=== PATIENT | male | born 1940 | race Caucasian/White ===

== ENCOUNTER → 2023-02-14 | Day surgery (SDC) | payer OTHER ==
[~2023-02-14] VITALS: Ht 180.3 cm; Wt 97.5 kg
[~2023-02-14] MED LIST: CLARITIN10 MG PO; COZAAR25 M1 PO; CYMBALTA30 MG PO; ELIQUIS5 M1 PO; GLYBURIDE5 MG PO; PRILOSEC20 M1 PO; ZOCOR40 MG PO
[2023-02-14 08:42] VITALS: BP 158/85
[2023-02-14 10:17] VITALS: BP 141/85
[2023-02-14 10:32] VITALS: BP 140/86
[2023-02-14 10:46] VITALS: BP 147/93
== END | disposition home or self-care (01) ==
LOC: SDC 02-09 16:15
PROVIDERS: ATTEND Ophthalmology
DX: E11.36 Type 2 diabetes mellitus with diabetic cataract (principal); H25.811 Combined forms of age-related cataract, right eye; K21.9 Gastro-esophageal reflux disease without esophagitis; F41.9 Anxiety disorder, unspecified; F32.A Depression, unspecified; Z98.890 Other specified postprocedural states; Z88.8 Allergy status to other drugs, medicaments and biological substances

== ENCOUNTER → 2023-04-18 | Day surgery (SDC) | payer OTHER ==
[~2023-04-18] VITALS: Ht 180.3 cm; Wt 97.5 kg
[~2023-04-18] MED LIST changes: +ASPIRIN81 M1 PO; +BALANCED SALT IRRIG SOLN NO.2 1.13 ML,Lidocaine Hydrochloride 0.37 ML,EPINEPHrine Hydro... IV SCH; +Balanced Salt Solution 500 ML OPH SCH; +Cefuroxime Sodium 5 MG in BALANCED SALT IRRIG SOLN NO.2 0.5 ML,SYRINGE, DISPOSABLE, 10 ... IO SCH; +JANUMET 50-1,01 EACH PO; +KETOCONAZOLE 1120 ML TD; +LATANOPROST2.5 ML OP; +Midazolam Hydrochloride 2 MG/2 ML VIAL IV ONE; +OFLOXACIN 0.3% 5 ML BOTTLE ONE; +OFLOXACIN 0.3% 5 ML BOTTLE OPH SCH; +PHENYLEPHRINE/KETOROLAC 4 ML in Balanced Salt Solution 500 ML OPH SCH; +POVIDONE IODINE 5% OPHTHALMIC 30 ML BOTTLE OPH ONE; +POVIDONE IODINE 5% OPHTHALMIC 30 ML BOTTLE OPH SCH; +Phenylephrine Hydrochloride 2 ML BOT OPH ONE; +Phenylephrine Hydrochloride 2 ML BOT OPH SCH; +Proparacaine Hydrochloride 15 ML BOT OPH ONE; +Proparacaine Hydrochloride 15 ML BOT OPH SCH; +SODIUM CHLORIDE 0.9% 1,000 ML IV SCH; +TETRACAINE HCL 10 DROP BOT OPH SCH; +TRAZODONE50 MG PO; +TROPICAMIDE 3 ML BOT OPH ONE; +TROPICAMIDE 3 ML BOT OPH SCH; +Tetracaine Hydrochloride 0.5% 4 ML BOT OPH ONE; +Tetracaine Hydrochloride 0.5% 4 ML BOT OPH SCH; +prednisoLONE acetate 1% OPHTHALMIC 5 ML BOT OPH ONE; +prednisoLONE acetate 1% OPHTHALMIC 5 ML BOT OPH SCH
[2023-04-18 08:53] VITALS: BP 147/73
[2023-04-18 09:58] VITALS: BP 110/90
[2023-04-18 10:11] VITALS: BP 152/88
[2023-04-18 10:22] VITALS: BP 140/75
== END | disposition home or self-care (01) ==
LOC: SDC 03-16 11:00
PROVIDERS: ATTEND Ophthalmology
DX: H25.812 Combined forms of age-related cataract, left eye (principal); I48.91 Unspecified atrial fibrillation; K21.9 Gastro-esophageal reflux disease without esophagitis; F41.9 Anxiety disorder, unspecified; F32.A Depression, unspecified; Z98.41 Cataract extraction status, right eye; Z98.890 Other specified postprocedural states; Z79.82 Long term (current) use of aspirin; Z79.84 Long term (current) use of oral hypoglycemic drugs; Z79.899 Other long term (current) drug therapy; Z88.8 Allergy status to other drugs, medicaments and biological substances